=== PATIENT | female | born 1980 ===

== ENCOUNTER 2017-09-11 09:41 | Emergency (ER) | payer MEDICAID ==
[2017-09-11 09:45] VITALS: BMI 26.0
[2017-09-11 10:01] VITALS: O2SAT 98
[2017-09-11] MEDS ORDERED: Sodium Chloride 0.9% 1,000 ML IV STA (10:10)
--- NOTE | 2017-09-11 10:16 | ED PDOC ---
HPI: General Adult Time Seen by Provider: 09/11/17 09:55 Chief Complaint (Nursing): Dizziness/Lightheaded Chief Complaint (Provider): Dizziness History Per: Patient History/Exam Limitations: no limitations Onset/Duration Of Symptoms: Days (yesterday) Additional Complaint(s): Dizziness, like room spinning. Starts when suddenly moves around or walks suddenly. When sitting still, symptoms resolve. No headaches, neck pain, dyspnea, chest pain, fever, cough. No numbness, tingles, weakness. No abd pain. Has nausea and vomit with it, nonbloody. Past Medical History Reviewed: Nursing Documentation, Vital Signs Vital Signs: Last Vital Signs Temp 98.7 F 09/11/17 09:45 Pulse 96 H 09/11/17 09:45 Resp 20 09/11/17 09:45 BP 119/80 09/11/17 09:45 Pulse Ox 98 09/11/17 12:09 - Medical History PMH: No Chronic Diseases - Surgical History Surgical History: Cholecystectomy - Family History Family History: States: Unknown Family Hx - Living Arrangements Living Arrangements: With Family - Social History Current smoker - smoking cessation education provided: No Alcohol: None Drugs: Denies - Immunization History Hx Tetanus Toxoid Vaccination: No Hx Influenza Vaccination: No Hx Pneumococcal Vaccination: No - Home Medications Home Medications: Ambulatory Orders Medication Instructions Recorded Dextran 70/Hypromellose 2 each OP Q6 PRN #1 bot 07/28/15 [Artificial Tears] Ibuprofen [Motrin] 1 tab PO Q8 PRN #24 tab 07/28/15 Promethazine/Codeine 5 ml PO Q12 PRN #100 ml 07/28/15 [Codeine/Promethazine 10 MG/5 Ml-6.25 MG/5 Ml] Pseudoephedrine [Sudafed Tab] 1 tab PO Q6 PRN #24 tab 07/28/15 Cetirizine HCl [Zyrtec] 10 mg PO DAILY #5 capsule 07/31/15 Famotidine [Pepcid] 20 mg PO BID #8 tab 07/31/15 Neomycin/Polymyxin/Hydrocortis 4 drop OT TID #1 bottle 07/31/15 [Cortisporin Otic Susp] Prednisone 50 mg PO DAILY #4 tablet 07/31/15 Famotidine [Pepcid] 20 mg PO BID #28 tab 12/21/15 oxyCODONE/Acetaminophen [Percocet 1 ea PO Q6H PRN #15 tab 12/21/15 5/325 mg Tab] Meclizine [Meclizine*] 25 mg PO Q12 PRN #10 tab 09/11/17 - Allergies Allergies/Adverse Reactions: Allergies Allergy/AdvReac Type Severity Reaction Status Date / Time codeine Allergy RASH Verified 09/11/17 09:58 promethazine HCl Allergy RASH Verified 09/11/17 09:58 [From Phenergan] Review of Systems ROS Statement: Except As Marked, All Systems Reviewed And Found Negative Gastrointestinal: Positive for: Nausea, Vomiting Neurological: Positive for: Dizziness Physical Exam - Reviewed Nursing Documentation Reviewed: Yes Vital Signs Reviewed: Yes - Physical Exam Appears: Positive for: Well, Non-toxic, No Acute Distress Head Exam: Positive for: ATRAUMATIC, NORMAL INSPECTION, NORMOCEPHALIC Skin: Positive for: Normal Color, Warm, DRY Eye Exam: Positive for: EOMI, Normal appearance, PERRL ENT: Positive for: Normal ENT Inspection Neck: Positive for: Normal, Painless ROM Cardiovascular/Chest: Positive for: Regular Rate, Rhythm Respiratory: Positive for: CNT, Normal Breath Sounds Gastrointestinal/Abdominal: Positive for: Normal Exam, Soft. Negative for: Tenderness Back: Positive for: Normal Inspection. Negative for: L CVA Tenderness, R CVA Tenderness Extremity: Positive for: Normal ROM. Negative for: Tenderness, Pedal Edema Neurologic/Psych: Positive for: Alert, global position system technician II-XII, Oriented. Negative for: Motor/Sensory Deficits, Facial Droop - Laboratory Results Result Diagrams: 09/11/17 10:30 09/11/17 10:30 Interpretation Of Abn Labs: no acute - ECG ECG: Positive for: Interpreted By Me, Viewed By Me ECG Rhythm: Positive for: Normal QRS, Normal ST Segment, Sinus Rhythm O2 Sat by Pulse Oximetry: 98 Pulse Ox Interpretation: Normal - Progress ED Course And Treament: 1208: Stable. AAOx3. Feels better. Tolerated PO. Ambulated with no issues. Disposition - Clinical Impression Clinical Impression: Dizziness - Patient ED Disposition Is Patient to be Admitted: No Counseled Patient/Family Regarding: Studies Performed, Diagnosis, Need For Followup, Rx Given - Disposition Referrals: [facility] [Outside] Disposition: Routine/Home Disposition Time: 12:08 Condition: STABLE Additional Instructions: Return if not better in 3 days. Prescriptions: Meclizine [Meclizine*] 25 mg PO Q12 PRN #10 tab PRN Reason: Dizziness Instructions: Vertigo (a Type of Dizziness) (DC) Forms: [employer] (Nam[place]ian), [facility] ED School/Work Excuse Print Language: MOSOTHO
[2017-09-11 10:40] LABS: BASO % 0.5 % (0.0-2.0); EOS # 0.1 K/uL (0.0-0.7); EOS % 1.9 % (0.0-4.0); HEMOGLOBIN 12.5 g/dL (12.0-16.0); LYMPH # 1.9 K/uL (1.0-4.3); LYMPH % 42.1 % (20.0-40.0); MEAN CELL VOLUME 90.3 fl (81.0-99.0); MEAN CORPUSCULAR HEMOGLOBIN 29.8 pg (27.0-31.0); MEAN PLATELET VOLUME 7.9 fl (7.2-11.7); MONO # 0.4 K/uL (0.0-0.8); MONO % 8.5 % (0.0-10.0); NEUT # 2.2 K/uL (1.8-7.0); NRBC % 0.1 % (0.0-0.0); RBC 4.18 Mil/uL (3.80-5.20); RED CELL DISTRIBUTION WIDTH 12.7 % (11.5-14.5); WHITE BLOOD COUNT 4.6 K/uL (4.8-10.8)
[2017-09-11 10:56] LABS: ALB/GLOB RATIO 1.3 (1.0-2.1); ALBUMIN 4.2 g/dL (3.5-5.0); ALT/SGPT 26 U/L (9-52); AST/SGOT 20 U/L (14-36); BLOOD UREA NITROGEN 6 mg/dl (7-17); CALCIUM 9.1 mg/dL (8.4-10.2); GFR AFRICAN-AMERICAN > 60; GFR NON-AFRICAN AMERICAN > 60
[2017-09-11 12:33] VITALS: BP 126/78; PULSE 78; RESP 18; TEMP 97
--- NOTE | 2017-09-11 13:49 | CARD ---
APPROVED REPORT Date of service: 09/11/2017 <Conclusion> Normal sinus rhythm Normal ECG
== END 2017-09-11 12:34 | disposition home or self-care (01) ==
LOC: H.ER 09:41
DX: R42 Dizziness and giddiness (principal)
CPT/HCPCS: 80053; 81025; 82948; 84484; 85025; 93005; 99285; J7030

== ENCOUNTER 2018-06-06 17:02 | Emergency (ER) | payer MEDICAID ==
[2018-06-06 17:02] VITALS: BMI 26.0
[2018-06-06 19:12] VITALS: BP 122/78; PULSE 71; RESP 18; TEMP 98; O2SAT 99
--- NOTE | 2018-06-06 19:40 | ED PDOC ---
HPI: Headache Time Seen by Provider: 06/06/18 17:49 Chief Complaint (Nursing): Headache Chief Complaint (Provider): headache History Per: Patient History/Exam Limitations: language barrier (language line used) Onset/Duration Of Symptoms: Days (6 days) Current Symptoms Are (Timing): Still Present Quality: Dull Preceeding Symptoms: None Associated Symptoms: denies: Photophobia, Blurred Vision, Nausea, Vomiting Additional Complaint(s): Pt. is a healthy 38 y/o Female who reports 6 day history of mild headache, gradual in onset, dull. Headaches normally started in afternoon. Initially for the first two days, she was taking motrin with temporary relief. She has not taken anything for pain in the last 4 days. Pt. reports she has gotten headaches in past but usually doesnt last this long. She otherwise feels well; denies fevers, rash, visual changes, photophobia, vomiting. Past Medical History Vital Signs: Last Vital Signs Temp 98 F 06/06/18 19:12 Pulse 71 06/06/18 19:12 Resp 18 06/06/18 19:12 BP 122/78 06/06/18 19:12 Pulse Ox 99 06/06/18 19:12 - Medical History PMH: No Chronic Diseases - Surgical History Surgical History: Cholecystectomy - Family History Family History: States: Unknown Family Hx - Immunization History Hx Tetanus Toxoid Vaccination: No Hx Influenza Vaccination: No Hx Pneumococcal Vaccination: No - Home Medications Home Medications: Ambulatory Orders Medication Instructions Recorded Dextran 70/Hypromellose 2 each OP Q6 PRN #1 bot 07/28/15 [Artificial Tears] Ibuprofen [Motrin] 1 tab PO Q8 PRN #24 tab 07/28/15 Promethazine/Codeine 5 ml PO Q12 PRN #100 ml 07/28/15 [Codeine/Promethazine 10 MG/5 Ml-6.25 MG/5 Ml] Pseudoephedrine [Sudafed Tab] 1 tab PO Q6 PRN #24 tab 07/28/15 Cetirizine HCl [Zyrtec] 10 mg PO DAILY #5 capsule 07/31/15 Famotidine [Pepcid] 20 mg PO BID #8 tab 07/31/15 Neomycin/Polymyxin/Hydrocortis 4 drop OT TID #1 bottle 07/31/15 [Cortisporin Otic Susp] Prednisone 50 mg PO DAILY #4 tablet 07/31/15 Famotidine [Pepcid] 20 mg PO BID #28 tab 12/21/15 oxyCODONE/Acetaminophen [Percocet 1 ea PO Q6H PRN #15 tab 12/21/15 5/325 mg Tab] Meclizine [Meclizine*] 25 mg PO Q12 PRN #10 tab 09/11/17 Ibuprofen [Motrin Tab] 600 mg PO TID PRN #15 tab 06/06/18 - Allergies Allergies/Adverse Reactions: Allergies Allergy/AdvReac Type Severity Reaction Status Date / Time codeine Allergy RASH Verified 06/06/18 17:41 promethazine HCl Allergy RASH Verified 06/06/18 17:41 [From Phenergan] Review of Systems Constitutional: Negative for: Fever, Chills, Sweats, Weakness Eyes: Negative for: Pain, Vision Change ENT: Negative for: Ear Pain, Nose Congestion Gastrointestinal: Negative for: Nausea, Vomiting Skin: Negative for: Rash Neurological: Positive for: Headache. Negative for: Weakness, Numbness, Incoordination, Change in Speech, Confusion, Dizziness Physical Exam - Reviewed Vital Signs Reviewed: Yes - Physical Exam Appears: Positive for: Well, Non-toxic Head Exam: Positive for: ATRAUMATIC Skin: Positive for: Normal Color, Warm, Dry Eye Exam: Positive for: Normal appearance, EOMI, PERRL ENT: Positive for: Normal ENT Inspection. Negative for: Sinus Pain/Drainage (No swelling or tenderness over sinuses), Nasal Congestion Neck: Positive for: Normal, Painless ROM, Supple Cardiovascular/Chest: Positive for: Regular Rate, Rhythm Respiratory: Positive for: Normal Breath Sounds Neurological/Psych: Positive for: Awake, Alert, Normal Tone, Oriented, Gait (wnl), therapeutic recreation director II-XII (intact). Negative for: Motor/Sensory Deficits (UE/LE strength 5/5 bilaterally. Sensation intact bilaterally) - ECG O2 Sat by Pulse Oximetry: 99 Medical Decision Making Medical Decision Making: Urine preg neg Motrin po given. Pt. well appearing, neuro intact, has not taken analgesic for richardson for the past 4d. Motrin po given. advised rest, motrin tid prn headache and to return if no improvement or new symptoms. Pt. will f/u with PMD in 2 days or return here if worse. Disposition - Clinical Impression Clinical Impression: Headache - Patient ED Disposition Is Patient to be Admitted: No Counseled Patient/Family Regarding: Diagnosis, Need For Followup, Rx Given - Disposition Disposition: Routine/Home Disposition Time: 19:00 Condition: STABLE Prescriptions: Ibuprofen [Motrin Tab] 600 mg PO TID PRN #15 tab PRN Reason: Headache Instructions: Headache, Adult (DC) Forms: [employer] ([place]), [employer] (American) Print Language: LAO
== END 2018-06-06 19:11 | disposition home or self-care (01) ==
LOC: H.ER 17:02
DX: R51 Headache (principal); Z88.8 Allergy status to other drugs, medicaments and biological substances

== ENCOUNTER 2018-07-01 16:40 | Emergency (ER) | payer MEDICAID ==
[2018-07-01 16:40] VITALS: BMI 26.0
[2018-07-01 16:47] VITALS: RESP 16; O2SAT 100
--- NOTE | 2018-07-01 18:02 | ED PDOC ---
Lower Extremity Pain/Injury Time Seen by Provider: 07/01/18 16:58 Chief Complaint (Nursing): Lower Extremity Problem/Injury Chief Complaint (Provider): Bilateral Lower Extremity Swelling History Per: Patient History/Exam Limitations: no limitations Onset/Duration Of Symptoms: Days Additional Complaint(s): 38 year old female presents to ED with bilateral lower extremity swelling for past 2 days. Patient states approximately 1 week ago she fell down stairs possibly injuring her ankles at that time. She had pain with no swelling for 1 day, however 2 days ago after coming home from work patient noted both of her feet were swollen, left greater than right, but denies any pain, trauma, fever, chills, SOB, history of cancer, long distance travel, clotting disorders, DVT or PE. PMD: none provided Past Medical History Reviewed: Historical Data, Nursing Documentation, Vital Signs Vital Signs: Last Vital Signs Temp 98.7 F 07/01/18 16:47 Pulse 96 H 07/01/18 16:47 Resp 16 07/01/18 16:47 BP 130/80 07/01/18 16:47 Pulse Ox 100 07/01/18 16:47 Primary Care Provider: FAMILY PROVIDER,NO - Medical History PMH: Denies: Deep Vein Thrombosis, Pulmonary Embolism Other PMH: no cancer or clotting disorders - Surgical History Surgical History: Cholecystectomy - Family History Family History: States: Unknown Family Hx - Social History Current smoker - smoking cessation education provided: No Alcohol: None Drugs: Denies - Immunization History Hx Tetanus Toxoid Vaccination: No Hx Influenza Vaccination: No Hx Pneumococcal Vaccination: No - Home Medications Home Medications: Ambulatory Orders Medication Instructions Recorded Dextran 70/Hypromellose 2 each OP Q6 PRN #1 bot 07/28/15 [Artificial Tears] Ibuprofen [Motrin] 1 tab PO Q8 PRN #24 tab 07/28/15 Promethazine/Codeine 5 ml PO Q12 PRN #100 ml 07/28/15 [Codeine/Promethazine 10 MG/5 Ml-6.25 MG/5 Ml] Pseudoephedrine [Sudafed Tab] 1 tab PO Q6 PRN #24 tab 07/28/15 Cetirizine HCl [Zyrtec] 10 mg PO DAILY #5 capsule 07/31/15 Famotidine [Pepcid] 20 mg PO BID #8 tab 07/31/15 Neomycin/Polymyxin/Hydrocortis 4 drop OT TID #1 bottle 07/31/15 [Cortisporin Otic Susp] Prednisone 50 mg PO DAILY #4 tablet 07/31/15 Famotidine [Pepcid] 20 mg PO BID #28 tab 12/21/15 oxyCODONE/Acetaminophen [Percocet 1 ea PO Q6H PRN #15 tab 12/21/15 5/325 mg Tab] Meclizine [Meclizine*] 25 mg PO Q12 PRN #10 tab 09/11/17 Ibuprofen [Motrin Tab] 600 mg PO TID PRN #15 tab 06/06/18 - Allergies Allergies/Adverse Reactions: Allergies Allergy/AdvReac Type Severity Reaction Status Date / Time codeine Allergy RASH Verified 07/01/18 16:51 promethazine HCl Allergy RASH Verified 07/01/18 16:51 [From Phenergan] Review of Systems ROS Statement: Except As Marked, All Systems Reviewed And Found Negative Constitutional: Negative for: Fever, Chills, Other (pain or trauma) Respiratory: Negative for: Shortness of Breath Musculoskeletal: Positive for: Leg Pain (bilateral lower extremity swelling, both feet swollen, left greater than right ) Physical Exam - Reviewed Nursing Documentation Reviewed: Yes Vital Signs Reviewed: Yes - Physical Exam Appears: Positive for: Well Pulses-Dorsalis Pedis (L): 2+ Pulses-Dorsalis Pedis (R): 2+ Extremity: Positive for: Normal ROM (with flexion and extension for ankles, knees, toes), Pedal Edema (non pitting in left greater than right lower extremity, just below ankle on right, below calf on left), Capillary Refill (less than 2 seconds) Neurological/Psych: Positive for: Awake, Alert, Oriented (x3) - ECG O2 Sat by Pulse Oximetry: 100 (RA) Pulse Ox Interpretation: Normal Medical Decision Making Medical Decision Making: Time: 1719 Initial Impression: Initial Plan: --Bilaterally lower extremity venous duplex 1941 US FINDINGS: DEEP VEINS: The common femoral, superficial femoral, and popliteal veins are echolucent and compressible. There is normal color Doppler flow throughout. The visualized calf veins appear patent. SUPERFICIAL VEINS: The visualized greater saphenous vein is patent. SOFT TISSUES: No popliteal fossa cyst or other abnormalities. IMPRESSION: No deep venous thrombosis evident on bilateral lower extremity examination. 2013 Patient is medically stable and ready for discharge. Scribe Attestation: Documented by Osman Grubbs, acting as a scribe for Ana Alicea PA-C Provider Scribe Attestation: All medical record entries made by the Scribe were at my direction and personally dictated by me. I have reviewed the chart and agree that the record accurately reflects my personal performance of the history, physical exam, medical decision making, and the department course for this patient. I have also personally directed, reviewed, and agree with the discharge instructions and disposition. Disposition - Clinical Impression Clinical Impression: Swollen ankles - Disposition Disposition: Routine/Home Disposition Time: 20:14 Condition: STABLE Additional Instructions: Follow up with your primary care doctor for further evaluation of leg swelling. Return to ER if you develop shortness of breath or chest pain. Elevate your legs whenever able and wear compression stockings to help reduce swelling. Forms: [employer] ([place] Zealander) Print Language: GREEK
[2018-07-01 20:30] VITALS: BP 126/76; PULSE 89; TEMP 98.4
--- NOTE | 2018-07-02 12:49 | US ---
Date of service: 07/01/2018 HISTORY: asymmetric swelling x 2 days. PRIORS: None. FINDINGS: 2-D, color and duplex Doppler analysis of the lower extremity venous circulation using routine protocol from the bilateral common and superficial femoral veins through the popliteal veins. Graded compression and augmentation were also utilized. Venous compressibility: Normal. Flow and augmentation patterns: Normal. Visualized posterior tibial vein: Normal. Loco cyst: None. IMPRESSION: No sonographic or Doppler evidence for DVT in bilateral lower extremities. Concordant preliminary report from [facility], 07/01/2018, 7:42 p.m..
== END 2018-07-01 20:23 | disposition home or self-care (01) ==
LOC: H.ER 16:40
DX: R60.0 Localized edema (principal); Z88.8 Allergy status to other drugs, medicaments and biological substances